=== PATIENT | male | born 1965 | race American Indian/Alaskan Native ===

== ENCOUNTER 2016-10-06 09:07 | Outpatient (CLI) | payer BC ==
[2016-10-06 10:15] LABS: Blood Urea Nitrogen 18 mg/dL (9-20)
--- NOTE | 2016-10-06 15:44 | Cat Scan Report ---
CT abdomen and pelvis without contrast: Inguinal hernia. Transverse images are obtained from the low chest to the ischium with coronal and sagittal 2-D reformatted images. Oral contrast administered. A partially imaged subpleural pulmonary noncalcified nodule is thank you noted in the right lung base laterally measuring approximately 9 mm in diameter. The abdominal and retroperitoneal organs are normal. Most of the oral contrast is in the colon with only a very small amount remaining in the small bowel. There is a large right inguinal hernia extending into the scrotal sac containing opacified loops of small bowel. The mouth of the hernia is approximately 4 cm in diameter. No evidence of strangulation. There is spondylosis from L3-L5 with narrowed interspaces from L2-L5. Impression: 1. Large right inguinal hernia. 2. Right pulmonary nodule. Recommendation: Chest CT to better evaluate pulmonary nodule and evaluation remaining chest.
== END 2016-10-06 09:08 | disposition home or self-care (01) ==
LOC: CT 09:07
PROVIDERS: ATTEND Surgery
DX: K40.90 Unilateral inguinal hernia, without obstruction or gangrene, not specified as recurrent (principal); R91.1 Solitary pulmonary nodule; M47.896 Other spondylosis, lumbar region
CPT/HCPCS: 36415; 74177; 82565; 84520; Q9967